=== PATIENT | female | born 1970 | race Caucasian/White ===

== ENCOUNTER 2018-07-22 11:23 | Emergency (ER) | payer SELFPAY ==
[2018-07-22 11:45] VITALS: BP 133/80
[2018-07-22] MEDS ORDERED: Ondansetron ODT TAB* 4 MG PO ONE (12:14)
--- NOTE | 2018-07-22 12:19 | UC ---
Abdominal Pain Female HPI - HPI Summary HPI Summary: The patient is a 48-year-old female that arrived here from [facility]. She has been here for 3 days. Since arrival here she has had nausea and some crampy abdominal pain, and diarrhea. She has had 2-3 episodes of diarrhea a day. She denies any blood in her diarrhea. Today she has been able to drink liquids but is hesitant to take any solid foods. She is planning on traveling to [place] later today. She has not been on any recent antibiotics. She has her gallbladder out. She is traveling with her and he does not have similar symptoms. - History of Current Complaint Chief Complaint: UCAbdominalPain Stated Complaint: ABDOMINAL PAIN Time Seen by Provider: 07/22/18 12:06 Hx Obtained From: Patient Hx Last Menstrual Period: 06/21/18 Onset/Duration: Gradual Onset, Lasting Days Timing: Constant Pain Intensity: 7 Pain Scale Used: 0-10 Numeric Location: Diffuse Character: Cramping Aggravating Factor(s): Nothing Associated Signs and Symptoms: Positive: Decreased Appetite, Nausea, Diarrhea. Negative: Diaphoresis, Fever, Cough, Chest Pain, Dizzy, Back Pain, Constipation , Blood in Stool, Urinary Symptoms, Vomiting Allergies/Adverse Reactions: Allergies Allergy/AdvReac Type Severity Reaction Status Date / Time nickel Allergy Rash Verified 07/22/18 11:45 Home Medications: Home Medications Acetaminophen [Non-Aspirin Extra Strengt] 500 mg PO ONCE PRN 07/22/18 [History Confirmed 07/22/18] Atorvastatin* [Lipitor 20 MG*] 1 tab PO DAILY 07/22/18 [History Confirmed ] Glucomin 1 tab PO BID 07/22/18 [History] Metamizol 500 mg PO ONCE 07/22/18 [History Confirmed 07/22/18] Tritace 1 tab PO DAILY 07/22/18 [History] PMH/Surg Hx/FS Hx/Imm Hx Previously Healthy: Yes Endocrine History: Dyslipidemia - Surgical History Surgical History: Yes Surgery Procedure, Year, and Place: gallbladder removal - Family History Known Family History: Positive: Hypertension Negative: Cardiac Disease, Diabetes - Social History Alcohol Use: None Substance Use Type: None Smoking Status (MU): Never Smoked Tobacco Review of Systems Constitutional: Negative Skin: Negative Eyes: Negative ENT: Negative Respiratory: Negative Cardiovascular: Negative Gastrointestinal: Abdominal Pain, Diarrhea, Nausea Genitourinary: Negative Motor: Negative Neurovascular: Negative Musculoskeletal: Negative Neurological: Negative Psychological: Negative Is Patient Immunocompromised?: No All Other Systems Reviewed And Are Negative: Yes Physical Exam Triage Information Reviewed: Yes Appearance: Well-Appearing, No Pain Distress, Well-Nourished Vital Signs: Initial Vital Signs Temp 97.1 F 07/22/18 11:39 Pulse 58 07/22/18 11:39 Resp 18 07/22/18 11:39 BP 133/80 07/22/18 11:39 Pulse Ox 100 07/22/18 11:39 Vital Signs Reviewed: Yes Eyes: Positive: Conjunctiva Clear ENT: Positive: Hearing grossly normal, Pharynx normal. Negative: Nasal congestion, Nasal drainage, Trismus, Muffled voice, Hoarse voice Neck: Positive: Supple, Nontender Respiratory: Positive: Lungs clear, Normal breath sounds, No respiratory distress, No accessory muscle use Abdomen Description: Negative: Nontender - diffusely tender/worse LUQ Musculoskeletal: Positive: ROM Intact, No Edema Neurological: Positive: Alert, Muscle Tone Normal Psychological Exam: Normal Skin Exam: Normal Re-Evaluation - Re-Evaluation First Eval Re-Evaluation Time: 13:00 Change: Improved - No nausea and decreased pain. Abd Pain Female Course/Dx - Course Course Of Treatment: Pt improved with zofran. Wishes to leave now so she can travel to [place] - Differential Dx/Diagnosis Provider Diagnoses: actue diarrhea/abdominal pain and nausea. ? gastroenteritis Discharge - Sign-Out/Discharge Documenting (check all that apply): Patient Departure All imaging exams completed and their final reports reviewed: No Studies - Discharge Plan Condition: Stable Disposition: HOME Prescriptions: Ondansetron TAB* [Zofran Tab*] 4 mg PO Q6H PRN #10 tab PRN Reason: Nausea Patient Education Materials: Acute Diarrhea (ED) Referrals: No Primary Care Phys,NOPCP [Primary Care Provider] - Additional Instructions: You can also try Immodium AD for the diarrhea RECHECK SILVINA FOR WORSENING ABDOMINAL PAIN/FEVER/WORSENING VOMITING OR DIARRHEA RECHECK IN 48 HOURS IF NOT BETTER - Billing Disposition and Condition Condition: STABLE Disposition: Home
== END 2018-07-22 13:10 | disposition home or self-care (01) ==
LOC: UCEAST 11:23
CPT/HCPCS: 99202; A9270-GY; G0463